=== PATIENT | male | born 1945 | race Caucasian/White ===

== ENCOUNTER 2017-06-25 23:16 | Emergency (ER) | payer OTHER, MEDICARE ==
[~2017-06-25] VITALS: Ht 177.8 cm; Wt 93.0 kg
[~2017-06-25 23:16] MED LIST: AMARYL4 MG PO; AMLODIPINE BESY10 MG PO; AMLODIPINE BESYL5 MG PO; ASPIR-LOW81 MG PO; ASPIR-LOX325 MG; B12 IM; COREG6.25 MG PO; JANUVIA100 MG PO; KAYEXALATE15 GM/60 M PO; LASIX20 MG PO; LASIX40 MG PO; METFORMIN1000 MG PO; PRAVACHOL80 MG PO; SODIUM POLYSTYRENE SULFONATE; ZESTRIL,PRINIVIL5 MG PO
[2017-06-25] MEDS ORDERED: LANTUS SOL100 UNIT/1 SC (23:23)
[2017-06-25] MEDS ORDERED: VELTASSA8.4 GM PO (23:25)
[2017-06-26 00:10] LABS: BASO % 0.3 % (0.0-1.0); EOS % 0.3 % (1.0-4.0); HEMATOCRIT 34.3 % (42.0-52.0); HEMOGLOBIN 11.3 g/dl (14.0-18.0); LYMPH # 0.8 10*3/uL (1.3-4.4); MEAN CELL VOLUME 92.7 fl (80.0-94.0); MEAN CORPUSCULAR HGB 30.5 pg (27.0-31.0); MEAN CORPUSCULAR HGB CONC 32.9 g/dl (33.0-37.0); MEAN PLATELET VOLUME 10.9 fl (9.6-12.3); MONO # 1.3 10*3/uL (0.1-1.0); MONO % 11.5 % (3.0-9.0); NEUT # 8.8 10*3/uL (2.3-7.9); NEUT % 80.5 % (47.0-73.0); PLATELET COUNT AUTOMATED 137 10*3/uL (130-400); RED CELL DISTRI WIDTH 13.6 % (0-14.5); WHITE BLOOD COUNT 10.9 10*3/uL (4.8-10.8)
[2017-06-26 00:24] LABS: ALBUMIN 3.1 gm/dl (3.1-4.5); CREATININE 1.71 mg/dL (0.70-1.30); POTASSIUM 4.8 mmol/L (3.5-5.1); TOTAL PROTEIN 6.3 gm/dL (6.4-8.2)
[2017-06-26 01:08] LABS: BILIRUBIN NEGATIVE (NEGATIVE); BLOOD NEGATIVE (NEGATIVE); CLARITY SL CLOUDY (CLEAR); GLUCOSE 2+ (NEGATIVE); KETONE NEGATIVE (NEGATIVE); LEUKO ESTERASE NEGATIVE (NEGATIVE); NITRITE POSITIVE (NEGATIVE); UROBILINOGEN 0.2 E.U./dl (0.2-1.0)
[2017-06-26 01:15] LABS: BACTERIA 2+; EPITHELIAL CELLS 0-2
[2017-06-26 01:16] LABS: COLOR YELLOW (YELLOW)
[2017-06-26] MEDS ORDERED: GOOD NEIGHBOR M25 M1 PO (03:15)
[2017-06-26] MEDS ORDERED: SEPTDS PO (03:15)
[2017-06-26] MEDS ORDERED: TESSALON PERLE100 M1 PO (03:32)
== END 2017-06-26 03:48 | disposition home or self-care (01) ==
LOC: ED 23:16
PROVIDERS: Emergency Medicine
DX: R42 Dizziness and giddiness (principal); J40 Bronchitis, not specified as acute or chronic; N39.0 Urinary tract infection, site not specified; E11.9 Type 2 diabetes mellitus without complications; F17.200 Nicotine dependence, unspecified, uncomplicated; Z79.899 Other long term (current) drug therapy; Z88.8 Allergy status to other drugs, medicaments and biological substances; Z88.1 Allergy status to other antibiotic agents; Z79.82 Long term (current) use of aspirin; Z79.4 Long term (current) use of insulin; Z85.46 Personal history of malignant neoplasm of prostate

== ENCOUNTER 2018-11-26 23:18 | Inpatient (IN) | payer OTHER ==
[~2018-11-26] VITALS: Ht 170.2 cm; Wt 77.1 kg
--- NOTE | ~2018-11-26 | EKG ---
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
--- NOTE | ~2018-11-26 | CON ---
[place], [place] REPORT OF CONSULTATION NAME: DUONG HILLS UNIT #: [id number] ROOM: 511 DOCTOR: JOLYNN TEJADA DO BIRTHDATE: [birth year] DOS: 11/27/2018 RENAL CONSULTATION REASON FOR CONSULTATION: Chronic kidney disease, hypokalemia. HISTORY OF PRESENT ILLNESS: A pleasant 72-year-old male who has a history of hypertension, unspecified duration, but reports to have some control at home with systolic blood pressure in the 120-130 range. He also has a history of type 2 diabetes mellitus and chronic kidney disease, for which he apparently follows with a dock hand at the [facility]. Baseline creatinine is unknown nor is his underlying stage. He believes his CKD is due to diabetes mellitus, but again is unsure on this. History is also significant for prostate cancer. He has had coronary artery disease with previous 3-vessel coronary artery bypass grafting. He has had a previous prostatectomy as well. He presented to this institution yesterday at the request of physician through the [facility] after he had outpatient lab work performed yesterday morning and his potassium was reportedly 6.5. Unfortunately, I do not have access to these labs, unclear if the specimen was hemolyzed or not, his associated electrolytes such as his bicarbonate are unknown. His blood sugars are unknown either. He had been completely asymptomatic at the time, stated he was feeling quite well. 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 He denied any muscle weakness, chest pain, palpitations, presyncope, dyspnea. With the above, at the request of the physician through the [facility], he presented to this Emergency Room of this institution. He was hemodynamically stable and afebrile. Labs were rechecked. He was found to have a potassium of 5.5. His bicarbonate was 23. His glucose was 125. His BUN was 34, creatinine 1.97, magnesium was low at 1.2. Otherwise, chemistries were otherwise unremarkable. He apparently was given a dose of Kayexalate in the Emergency Room 30 grams and did subsequently move his bowels. This was administered approximately 12:45 a.m. Repeat lab work obtained this morning at 6:00 a.m. showed his potassium was now 5.1, BUN and creatinine of 31 and 1.86, glucose of 86, bicarbonate of 21. He had a hemoglobin of 11.2 on admission, 10.9 today. Previous hemoglobins are unknown. Baseline creatinine is unclear, but when last checked through the system at [facility], his creatinine was 1.6 in 12/2012 as well as 11/2012 with a value of 1.5 noted in 09/2012. Speaking with the patient, he denies use of NSAIDs. He is not on any sodium substitutes or any potassium supplements. Approximately 1 month ago, he was switched from losartan 25 mg daily to an unspecified dose of valsartan by his manager sterile. Apparently, this was done in an abrupt fashion. The manager sterile apparently had initially wanted him to be on Entresto at an unknown dosage, but when that was not available through the [place] system, he was put on what was thought to be an equivalent dose of valsartan again, it is not clear what dosages were being prescribed. He has continued on his same dose of hydrochlorothiazide 12.5 mg daily. He has been on a longstanding and stable dose of Veltassa 16.8 grams daily and has not missed any dosages. In addition to the above, negative review of systems. He has also denied anorexia, nausea, vomiting, abdominal pain, hematochezia or melena. [place], [place] REPORT OF CONSULTATION NAME: DUONG HILLS UNIT #: [id number] ROOM: [facility] DOCTOR: JOLYNN TEJADA DO BIRTHDATE: [birth year] PAST MEDICAL HISTORY: See above. ALLERGIES: LISINOPRIL, METFORMIN, OXACILLIN. CURRENT MEDICATIONS: Xarelto 5 mg daily, pravastatin 80 mg daily, Lantus 20 units subcutaneously at bedtime, Lipitor 20 mg a day, vitamin D 1000 IUs every day, hydrochlorothiazide 25 mg daily, carvedilol 6.25 mg b.i.d., aspirin 81 mg daily, sliding scale insulin. SOCIAL HISTORY: He resides at home. FAMILY HISTORY: Noncontributory. REVIEW OF SYSTEMS: Please see HPI. A full 10-point review of system was performed and obtained the above noted measures, was unremarkable except as noted in HPI. PHYSICAL EXAMINATION: VITAL SIGNS: Blood pressure is 140/66, pulse is 68, respirations 16, temperature is 97.5 degrees Fahrenheit. GENERAL APPEARANCE: A well-appearing male, awake, alert and oriented x 3, currently in no apparent distress. HEAD AND NECK: Conjunctivae are pink and moist. Mucosa is pink and moist. No carotid bruit, thyromegaly, adenopathy or JVD appreciated. LUNGS: Clear to auscultation and percussion. HEART: Regular, without S4, S3 gallop, rub, murmur or heave noted. ABDOMEN: Soft, positive bowel sounds x 4, nontender, without CVA tenderness noted. No rebound, guarding or rigidity noted. No flank bruits appreciated. NEUROLOGIC: Grossly nonfocal. EXTREMITIES: There is no clubbing, cyanosis. There is no edema noted. Pulses are +2 bilateral radial as well as dorsalis pedis. SKIN: Warm and dry without rash, ulcers, lesions, or petechiae appreciated. LABORATORY DATA: Labs from today: WBC is 7.0, hemoglobin of 10.9, hematocrit 34.4, platelets 153,000. MCV is 98.9, RDW is 12.5. Sodium is 144, potassium 5.1, chloride 116, CO2 21, BUN 31, creatinine 1.86, glucose of 86, calcium is 8.9. ASSESSMENT AND PLAN: 1. Chronic kidney disease, baseline is unknown, but renal function is stable apparently from admission labs and it is apparently unchanged going back to labs noted from 2013. He does follow with a dock hand at the [facility]. 2. Hypokalemia by report, though with decline in his potassium when rechecked on evaluation at the Emergency Room at [facility], suspect the [facility] value was erroneous perhaps due to hemolysis. He has no evidence to suggest a GI bleed. No salt substitutes or potassium supplements. No NSAIDs. He has been compliant with all of his medications including Veltassa and hydrochlorothiazide. Likely a question was raised that this could be related to the switch from losartan to valsartan, and while switch from losartan [place], [place] REPORT OF CONSULTATION NAME: DUONG HILLS UNIT #: [id number] ROOM: 511 DOCTOR: JOLYNN TEJADA DO BIRTHDATE: [birth year] to a more potent dosage of valsartan could lead to an elevated potassium, it seems that this was unlikely, and an insignificant contribution to the report of elevated potassium value given the significant drop in his potassium while it was rechecked at this institution pretreatment. 3. Hypertension. Blood pressure is under fair control, although apparently under better control at home. 4. Hypomagnesemia, repeat value has not been performed. RECOMMENDATIONS: The patient is anxious for discharge. He may be discharged to home from my perspective. We would suggest that he have outpatient lab work checked later this week to reassess his potassium and magnesium balance. I would suggest that, since it seems the switch from losartan to valsartan was arbitrary, he resume his previous dose of losartan. I did ask him to touch base with his outpatient dock hand for further guidance as well. Thank you for allowing us to participate in the care of this patient. JOLYNN TEJADA DO CM:CONSTR:REPORT OF CONSULTATION [id number] 12/13/18 0801 interface
[2018-11-26 23:18] VITALS: BP 157/77
[~2018-11-26 23:18] MED LIST changes: +GOOD NEIGHBOR M25 M1 PO; +LANTUS SOL100 UNIT/1 SC; +PRAVACHOL80 M1 PO; -PRAVACHOL80 MG PO; +SEPTDS PO; +TESSALON PERLE100 M1 PO; +VELTASSA8.4 GM PO
[2018-11-26 23:58] LABS: BASO % 0.5 % (0.0-1.0); EOS # 0.2 10*3/uL (0.0-0.4); HEMATOCRIT 34.4 % (42.0-52.0); HEMOGLOBIN 11.2 g/dl (14.0-18.0); LYMPH # 2.3 10*3/uL (1.3-4.4); LYMPH % 26.4 % (27.0-41.0); MEAN CELL VOLUME 98.3 fl (80.0-94.0); MEAN CORPUSCULAR HGB CONC 32.6 g/dl (33.0-37.0); MEAN PLATELET VOLUME 11.1 fl (9.6-12.3); MONO # 0.9 10*3/uL (0.1-1.0); MONO % 10.5 % (3.0-9.0); NEUT # 5.2 10*3/uL (2.3-7.9); NEUT % 60.3 % (47.0-73.0); PLATELET COUNT AUTOMATED 160 10*3/uL (130-400); RED CELL DISTRI WIDTH 12.5 % (0-14.5); WHITE BLOOD COUNT 8.7 10*3/uL (4.8-10.8)
[2018-11-27 00:14] LABS: ALBUMIN 3.5 gm/dl (3.1-4.5); ALKALINE PHOSPHATASE 102 U/L (45-117); BUN 34 mg/dl (7-24); CHLORIDE 113 mmol/L (98-107); CREATININE 1.97 mg/dL (0.70-1.30); POTASSIUM 5.5 mmol/L (3.5-5.1); SGOT/AST 17 IU/L (3-35); SGPT/ALT 26 U/L (12-78); SODIUM 142 mmol/L (136-145); TOTAL PROTEIN 6.7 gm/dL (6.4-8.2)
[2018-11-27 00:15] LABS: TROPONIN I < 0.015 ng/ml (<0.045)
[2018-11-27 00:23] LABS: INTERNATIONAL NORM RATIO 1.6 (2.0-3.5)
[2018-11-27 01:10] VITALS: BP 108/44
[2018-11-27] MEDS ORDERED: VICTOZA 2-0.6 MG/0.1 SC (01:43)
[2018-11-27] MEDS ORDERED: LOSARTAN POTASS25 M1 PO ×2 (01:44→15:34)
[2018-11-27] MEDS ORDERED: HYDR25T PO (01:45)
[2018-11-27] MEDS ORDERED: XARELTO2.5 MG PO (01:45)
[2018-11-27] MEDS ORDERED: VITAMIN D31000 UNI1 PO (01:47)
[2018-11-27] MEDS ORDERED: B121000 MCG/1 IM (01:53)
[2018-11-27 06:55] LABS: BASO % 0.6 % (0.0-1.0); EOS # 0.2 10*3/uL (0.0-0.4); EOS % 3.4 % (1.0-4.0); HEMATOCRIT 34.4 % (42.0-52.0); HEMOGLOBIN 10.9 g/dl (14.0-18.0); LYMPH # 2.1 10*3/uL (1.3-4.4); LYMPH % 30.7 % (27.0-41.0); MEAN CELL VOLUME 98.9 fl (80.0-94.0); MEAN CORPUSCULAR HGB 31.3 pg (27.0-31.0); MEAN CORPUSCULAR HGB CONC 31.7 g/dl (33.0-37.0); MEAN PLATELET VOLUME 11.7 fl (9.6-12.3); MONO # 0.8 10*3/uL (0.1-1.0); MONO % 11.2 % (3.0-9.0); NEUT # 3.8 10*3/uL (2.3-7.9); NEUT % 53.8 % (47.0-73.0); PLATELET COUNT AUTOMATED 153 10*3/uL (130-400); RED BLOOD COUNT 3.48 10*6/uL (4.50-5.90); RED CELL DISTRI WIDTH 12.5 % (0-14.5)
[2018-11-27 07:29] LABS: POTASSIUM 5.1 mmol/L (3.5-5.1)
[2018-11-27 07:46] LABS: CREATININE 1.86 mg/dL (0.70-1.30)
[2018-11-27 08:06] VITALS: BP 136/62
[2018-11-27 09:57] VITALS: BP 140/66
[2018-11-27 12:10] VITALS: BP 148/62
== END 2018-11-27 15:58 | disposition home or self-care (01) | DRG 640 ==
LOC: ED 23:18 → EDHOLD 11-27 00:50 → 5E 11-27 00:50
PROVIDERS: Family Medicine; Student in an Organized Health Care Education/Training Program; ADMIT Emergency Medicine
DX: E87.5 Hyperkalemia (principal); N17.0 Acute kidney failure with tubular necrosis; E87.8 Other disorders of electrolyte and fluid balance, not elsewhere classified; D64.9 Anemia, unspecified; I12.9 Hypertensive chronic kidney disease with stage 1 through stage 4 chronic kidney disease, or unspecified chronic kidney disease; N18.9 Chronic kidney disease, unspecified; E11.22 Type 2 diabetes mellitus with diabetic chronic kidney disease; I25.10 Atherosclerotic heart disease of native coronary artery without angina pectoris; E83.42 Hypomagnesemia; E78.5 Hyperlipidemia, unspecified; E11.65 Type 2 diabetes mellitus with hyperglycemia; Z79.4 Long term (current) use of insulin; Z88.8 Allergy status to other drugs, medicaments and biological substances; Z88.1 Allergy status to other antibiotic agents; Z87.440 Personal history of urinary (tract) infections; Z85.46 Personal history of malignant neoplasm of prostate; Z95.1 Presence of aortocoronary bypass graft; Z87.891 Personal history of nicotine dependence; Z80.42 Family history of malignant neoplasm of prostate; Z84.89 Family history of other specified conditions; Z79.82 Long term (current) use of aspirin; Z79.899 Other long term (current) drug therapy

== ENCOUNTER 2020-11-25 21:56 | Inpatient (IN) | payer OTHER ==
[~2020-11-25] VITALS: Ht 170.1 cm; Wt 80.8 kg
[~2020-11-25 21:56] MED LIST changes: +B121000 MCG/1 IM; +HYDR25T PO; +LOSARTAN POTASS25 M1 PO; +VICTOZA 2-0.6 MG/0.1 SC; +VITAMIN D31000 UNI1 PO; +XARELTO2.5 MG PO
[2020-11-25 22:06] VITALS: BP 173/66
[2020-11-25 22:28] LABS: BASO % 0.6 % (0.0-1.0); EOS # 0.3 10*3/uL (0.0-0.4); EOS % 3.8 % (1.0-4.0); HEMATOCRIT 35.8 % (42.0-52.0); LYMPH # 1.8 10*3/uL (1.3-4.4); LYMPH % 25.8 % (27.0-41.0); MEAN CORPUSCULAR HGB 31.2 pg (27.0-31.0); MEAN CORPUSCULAR HGB CONC 32.1 g/dl (33.0-37.0); MEAN PLATELET VOLUME 11.2 fl (9.6-12.3); MONO # 0.9 10*3/uL (0.1-1.0); MONO % 12.5 % (3.0-9.0); NEUT % 57.2 % (47.0-73.0); PLATELET COUNT AUTOMATED 154 10*3/uL (130-400); RED BLOOD COUNT 3.69 10*6/uL (4.50-5.90); RED CELL DISTRI WIDTH 13.1 % (0-14.5); WHITE BLOOD COUNT 7.1 10*3/uL (4.8-10.8)
[2020-11-25 22:48] LABS: ALBUMIN 3.2 gm/dl (3.1-4.5); CREATININE 1.76 mg/dL (0.70-1.30); POTASSIUM 5.5 mmol/L (3.5-5.1); TOTAL PROTEIN 6.7 gm/dL (6.4-8.2)
[2020-11-25 23:04] VITALS: BP 158/88
[2020-11-25] MEDS ORDERED: DIOVAN40 MG PO (23:26)
[2020-11-25] MEDS ORDERED: XARE15TA PO (23:29)
[2020-11-25] MEDS ORDERED: LIPITOR80 MG PO (23:30)
[2020-11-25] MEDS ORDERED: COREG12.5 M1 PO (23:30)
[2020-11-25] MEDS ORDERED: NOVOLOG FL100 UNIT/2 SC (23:32)
[2020-11-25] MEDS ORDERED: LANTUS SOL100 UNIT/1 SC (23:32)
[2020-11-25] MEDS ORDERED: TERAZOSIN HCL2 M1 PO (23:33)
[2020-11-25 23:50] VITALS: BP 168/62
[2020-11-26] MEDS ORDERED: VITAMIN B121000 MC1 PO (00:20)
[2020-11-26 04:43] LABS: BASO % 0.6 % (0.0-1.0); EOS # 0.3 10*3/uL (0.0-0.4); EOS % 4.1 % (1.0-4.0); HEMATOCRIT 35.6 % (42.0-52.0); LYMPH # 1.8 10*3/uL (1.3-4.4); LYMPH % 27.2 % (27.0-41.0); MEAN CELL VOLUME 98.3 fl (80.0-94.0); MEAN CORPUSCULAR HGB 30.9 pg (27.0-31.0); MEAN CORPUSCULAR HGB CONC 31.5 g/dl (33.0-37.0); MEAN PLATELET VOLUME 10.8 fl (9.6-12.3); MONO # 0.8 10*3/uL (0.1-1.0); MONO % 12.5 % (3.0-9.0); NEUT # 3.7 10*3/uL (2.3-7.9); NEUT % 55.3 % (47.0-73.0); PLATELET COUNT AUTOMATED 145 10*3/uL (130-400); RED BLOOD COUNT 3.62 10*6/uL (4.50-5.90); RED CELL DISTRI WIDTH 13.4 % (0-14.5); WHITE BLOOD COUNT 6.6 10*3/uL (4.8-10.8)
[2020-11-26 04:57] LABS: ACT PARTIAL THROMBO TIME 28.5 SECONDS (20.0-32.1); INTERNATIONAL NORM RATIO 1.3 (2.0-3.5)
[2020-11-26 05:02] LABS: ALBUMIN 3.3 gm/dl (3.1-4.5); CREATININE 1.72 mg/dL (0.70-1.30); POTASSIUM 5.8 mmol/L (3.5-5.1); TOTAL PROTEIN 6.7 gm/dL (6.4-8.2)
[2020-11-26 05:08] LABS: THYROID STIM HORMONE (HS) 3.34 uIU/ml (0.358-4.75)
[2020-11-26 08:00] VITALS: BP 161/64
[2020-11-26 09:45] LABS: VITAMIN D, 25-HYDROXY 39.6 ng/mL (30-100)
[2020-11-26 10:27] LABS: BILIRUBIN Negative (Negative); BLOOD Negative (Negative); CLARITY Clear (Clear); COLOR Yellow (Yellow); GLUCOSE 3+ (Negative); KETONE Negative (Negative); LEUKO ESTERASE Negative (Negative); NITRITE Negative (Negative); PH 5.5 (4.5-8.0); UROBILINOGEN 0.2 E.U./dl (0.0-1.0)
[2020-11-26 10:40] LABS: URINE CREATININE RANDOM 42.7 mg/dL
[2020-11-26 11:23] LABS: BACTERIA 3+; WBC 16-20 wbc/hpf (0-5)
[2020-11-26 12:00] VITALS: BP 156/62
[2020-11-26] MEDS ORDERED: MACROBID100 M1 PO (15:11)
== END 2020-11-26 15:39 | disposition home or self-care (01) | DRG 683 ==
LOC: ED 21:56 → EDHOLD 23:08 → 4E 23:08
PROVIDERS: Hospitalist; Internal Medicine; ADMIT Internal Medicine; ATTEND Internal Medicine
DX: N17.0 Acute kidney failure with tubular necrosis (principal); I13.0 Hypertensive heart and chronic kidney disease with heart failure and stage 1 through stage 4 chronic kidney disease, or unspecified chronic kidney disease; I50.22 Chronic systolic (congestive) heart failure; E11.22 Type 2 diabetes mellitus with diabetic chronic kidney disease; E11.65 Type 2 diabetes mellitus with hyperglycemia; E87.5 Hyperkalemia; D53.9 Nutritional anemia, unspecified; I25.10 Atherosclerotic heart disease of native coronary artery without angina pectoris; E83.42 Hypomagnesemia; E78.2 Mixed hyperlipidemia; N18.32 Chronic kidney disease, stage 3b; I48.0 Paroxysmal atrial fibrillation; Z79.4 Long term (current) use of insulin; Z88.1 Allergy status to other antibiotic agents; Z88.8 Allergy status to other drugs, medicaments and biological substances; Z87.891 Personal history of nicotine dependence; Z95.0 Presence of cardiac pacemaker; Z85.46 Personal history of malignant neoplasm of prostate

== ENCOUNTER 2022-12-26 22:22 | Emergency (ER) | payer OTHER ==
[~2022-12-26] VITALS: Ht 170.1 cm; Wt 72.6 kg
[~2022-12-26 22:22] MED LIST changes: +COREG12.5 M1 PO; +DIOVAN40 MG PO; +LIPITOR80 MG PO; +MACROBID100 M1 PO; +NOVOLOG FL100 UNIT/2 SC; +TERAZOSIN HCL2 M1 PO; +VITAMIN B121000 MC1 PO; +XARE15TA PO
[2022-12-26 22:56] LABS: BASO % 0.6 % (0.0-1.0); EOS # 0.3 10*3/uL (0.0-0.4); EOS % 3.5 % (1.0-4.0); HEMATOCRIT 31.1 % (42.0-52.0); LYMPH # 2.2 10*3/uL (1.3-4.4); LYMPH % 30.5 % (27.0-41.0); MEAN CELL VOLUME 94.8 fl (80.0-94.0); MEAN CORPUSCULAR HGB 31.7 pg (27.0-31.0); MEAN CORPUSCULAR HGB CONC 33.4 g/dl (33.0-37.0); MEAN PLATELET VOLUME 10.8 fl (9.6-12.3); MONO # 0.8 10*3/uL (0.1-1.0); NEUT # 3.8 10*3/uL (2.3-7.9); PLATELET COUNT AUTOMATED 175 10*3/uL (130-400); RED BLOOD COUNT 3.28 10*6/uL (4.50-5.90); RED CELL DISTRI WIDTH 12.6 % (0-14.5); WHITE BLOOD COUNT 7.1 10*3/uL (4.8-10.8)
[2022-12-26 23:09] LABS: ACT PARTIAL THROMBO TIME 28.1 SECONDS (20.0-32.1); INTERNATIONAL NORM RATIO 1.3 (2.0-3.5)
[2022-12-26 23:22] LABS: ALKALINE PHOSPHATASE 89 U/L (46-116); BUN 35 mg/dl (9-23); CHLORIDE 115 mmol/L (98-107); LIPASE 50 U/L (12-53); POTASSIUM 4.7 mmol/L (3.4-5.1); SGPT/ALT 12 U/L (10-49); TOTAL PROTEIN 6.3 gm/dL (6.0-8.0)
== END 2022-12-27 02:26 | disposition home or self-care (01) ==
LOC: ED 22:22
PROVIDERS: Internal Medicine
DX: E83.42 Hypomagnesemia (principal); E11.9 Type 2 diabetes mellitus without complications; Z79.4 Long term (current) use of insulin; I10 Essential (primary) hypertension; E78.00 Pure hypercholesterolemia, unspecified; Z88.8 Allergy status to other drugs, medicaments and biological substances; Z98.890 Other specified postprocedural states; Z87.891 Personal history of nicotine dependence

== ENCOUNTER 2023-08-12 08:05 | Emergency (ER) | payer OTHER ==
[~2023-08-12] VITALS: Ht 170.1 cm; Wt 72.6 kg
[2023-08-12] MEDS ORDERED: Acetaminophen/Oxycodone 5 MG/325 MG TABLET PO ONE (08:20)
[2023-08-12] MEDS ORDERED: TRAMADOL HCL50 MG PO (08:52)
[2023-08-12] MEDS ORDERED: PREDNISONE20 M1 PO (08:52)
== END 2023-08-12 09:22 | disposition home or self-care (01) ==
LOC: ED 08:05
DX: M10.041 Idiopathic gout, right hand (principal); I25.10 Atherosclerotic heart disease of native coronary artery without angina pectoris; I48.91 Unspecified atrial fibrillation; I12.9 Hypertensive chronic kidney disease with stage 1 through stage 4 chronic kidney disease, or unspecified chronic kidney disease; E11.22 Type 2 diabetes mellitus with diabetic chronic kidney disease; N18.9 Chronic kidney disease, unspecified; E78.5 Hyperlipidemia, unspecified; Z88.8 Allergy status to other drugs, medicaments and biological substances; Z88.1 Allergy status to other antibiotic agents; Z79.2 Long term (current) use of antibiotics; Z79.899 Other long term (current) drug therapy; Z79.82 Long term (current) use of aspirin; Z79.4 Long term (current) use of insulin; Z95.0 Presence of cardiac pacemaker; Z90.89 Acquired absence of other organs; Z87.891 Personal history of nicotine dependence

== ENCOUNTER 2023-08-31 09:40 | Emergency (ER) | payer OTHER ==
[~2023-08-31] VITALS: Ht 167.6 cm; Wt 72.6 kg
[~2023-08-31 09:40] MED LIST changes: +PREDNISONE20 M1 PO; +TRAMADOL HCL50 MG PO
[2023-08-31 10:04] LABS: BASO % 0.4 % (0.0-1.0); EOS # 0.3 10*3/uL (0.0-0.4); EOS % 4.2 % (1.0-4.0); HEMATOCRIT 31.3 % (42.0-52.0); LYMPH # 1.2 10*3/uL (1.3-4.4); LYMPH % 17.3 % (27.0-41.0); MEAN CELL VOLUME 96.3 fl (80.0-94.0); MEAN CORPUSCULAR HGB 31.1 pg (27.0-31.0); MEAN CORPUSCULAR HGB CONC 32.3 g/dl (33.0-37.0); MEAN PLATELET VOLUME 10.2 fl (9.6-12.3); MONO # 0.6 10*3/uL (0.1-1.0); MONO % 8.9 % (3.0-9.0); NEUT # 4.6 10*3/uL (2.3-7.9); NEUT % 68.9 % (47.0-73.0); PLATELET COUNT AUTOMATED 140 10*3/uL (130-400); RED BLOOD COUNT 3.25 10*6/uL (4.50-5.90); RED CELL DISTRI WIDTH 13.2 % (0-14.5); WHITE BLOOD COUNT 6.7 10*3/uL (4.8-10.8)
[2023-08-31] MEDS ORDERED: hydrALAZINE hydrochloride 20 MG/ML VIAL IV ONE ×3 (10:15→10:30)
[2023-08-31 10:25] LABS: TOTAL PROTEIN 6.2 gm/dL (6.0-8.0)
[2023-08-31] MEDS ORDERED: MAGNESIUM SULFATE 50 ML IV ONE (10:40)
[2023-08-31] MEDS ORDERED: MAGNESIUM OXID420 M1 PO (11:26)
[2023-08-31] MEDS ORDERED: CLARITIN10 MG PO (11:27)
== END 2023-08-31 11:40 | disposition home or self-care (01) ==
LOC: ED 09:40
PROVIDERS: Nurse Practitioner Family
DX: I13.0 Hypertensive heart and chronic kidney disease with heart failure and stage 1 through stage 4 chronic kidney disease, or unspecified chronic kidney disease (principal); E11.65 Type 2 diabetes mellitus with hyperglycemia; E11.22 Type 2 diabetes mellitus with diabetic chronic kidney disease; E78.00 Pure hypercholesterolemia, unspecified; N18.9 Chronic kidney disease, unspecified; R60.0 Localized edema; E83.42 Hypomagnesemia; Z88.8 Allergy status to other drugs, medicaments and biological substances; E87.5 Hyperkalemia; D64.9 Anemia, unspecified; I25.10 Atherosclerotic heart disease of native coronary artery without angina pectoris; E78.5 Hyperlipidemia, unspecified; Z98.890 Other specified postprocedural states; Z87.891 Personal history of nicotine dependence

== ENCOUNTER 2024-08-11 16:19 | Inpatient (IN) | payer OTHER ==
[~2024-08-11] VITALS: Ht 167.6 cm; Wt 75.4 kg
[2024-08-11] VITALS (9 sets, daily range): BP systolic 110–150; BP diastolic 25–47
[~2024-08-11 16:19] MED LIST changes: +CLARITIN10 MG PO; +MAGNESIUM OXID420 M1 PO
[2024-08-11 16:57] LABS: HEMATOCRIT 21.3 % (42.0-52.0); MEAN CELL VOLUME 95.9 fl (80.0-94.0); MEAN CORPUSCULAR HGB 30.6 pg (27.0-31.0); MEAN CORPUSCULAR HGB CONC 31.9 g/dl (33.0-37.0); MEAN PLATELET VOLUME 10.5 fl (9.6-12.3); PLATELET COUNT AUTOMATED 161 10*3/uL (130-400); RED BLOOD COUNT 2.22 10*6/uL (4.50-5.90); RED CELL DISTRI WIDTH 15.6 % (0-14.5); WHITE BLOOD COUNT 5.5 10*3/uL (4.8-10.8)
[2024-08-11 17:03] LABS: MANUAL DIFF REFLEX YES
[2024-08-11 17:17] LABS: TOTAL CELLS COUNTED 100 #CELLS
[2024-08-11 17:18] LABS: PLATELET SUFFICIENCY NORMAL (NORMAL)
[2024-08-11] MEDS ORDERED: SODIUM CHLORIDE 0.9% 1,000 ML IV ONE ×2 (17:25→18:55)
[2024-08-11] MEDS ORDERED: ACETAMINOPHEN 325 MG TAB PO PRN (18:00)
[2024-08-11] MEDS ORDERED: Magnesium Hydroxide 30 ML UDC PO PRN (18:00)
[2024-08-11] MEDS ORDERED: TEMAZEPAM 15 MG CAP PO PRN (18:00)
[2024-08-11] MEDS ORDERED: SUCRALFATE 1 GM TAB PO SCH (19:00)
[2024-08-11] MEDS ORDERED: SODIUM CHLORIDE 0.9% 500 ML IV ONE ×2 (19:54→22:56)
[2024-08-11] MEDS ORDERED: DEXTROSE 10 % IN WATER 250 ML IV PRN (20:20)
[2024-08-11] MEDS ORDERED: INSULIN LISPRO 1 UNIT/0.01 ML SQ SCH (22:00)
[2024-08-11] MEDS ORDERED: Insulin Glargine, Recombinan 1 UNIT/0.01 ML SC SCH (22:00)
[2024-08-11] MEDS ORDERED: CARVEDILOL 12.5 MG TAB PO SCH (22:00)
[2024-08-11 22:45] LABS: BASO % 0.6 % (0.0-1.0); EOS # 0.3 10*3/uL (0.0-0.4); EOS % 5.1 % (1.0-4.0); HEMATOCRIT 23.5 % (42.0-52.0); MEAN CELL VOLUME 96.3 fl (80.0-94.0); MEAN CORPUSCULAR HGB 30.7 pg (27.0-31.0); MEAN CORPUSCULAR HGB CONC 31.9 g/dl (33.0-37.0); MONO # 0.7 10*3/uL (0.1-1.0); MONO % 12.8 % (3.0-9.0); NEUT # 2.9 10*3/uL (2.3-7.9); NEUT % 54.8 % (47.0-73.0); PLATELET COUNT AUTOMATED 150 10*3/uL (130-400); RED BLOOD COUNT 2.44 10*6/uL (4.50-5.90); RED CELL DISTRI WIDTH 15.1 % (0-14.5); WHITE BLOOD COUNT 5.3 10*3/uL (4.8-10.8)
[2024-08-12] VITALS (12 sets, daily range): BP systolic 128–180; BP diastolic 32–84
[2024-08-12 05:37] LABS: POTASSIUM 4.7 mmol/L (3.4-5.1); TOTAL PROTEIN 5.4 gm/dL (6.0-8.0)
[2024-08-12] MEDS ORDERED: Pantoprazole Sodium 40 MG TAB PO SCH (06:00)
[2024-08-12 06:02] LABS: BASO # 0.1 10*3/uL (0.0-0.1); BASO % 0.8 % (0.0-1.0); EOS # 0.3 10*3/uL (0.0-0.4); EOS % 4.6 % (1.0-4.0); HEMATOCRIT 25.8 % (42.0-52.0); MEAN CELL VOLUME 93.5 fl (80.0-94.0); MEAN CORPUSCULAR HGB 31.2 pg (27.0-31.0); MEAN CORPUSCULAR HGB CONC 33.3 g/dl (33.0-37.0); MEAN PLATELET VOLUME 11.4 fl (9.6-12.3); MONO # 0.7 10*3/uL (0.1-1.0); MONO % 11.8 % (3.0-9.0); NEUT # 3.9 10*3/uL (2.3-7.9); NEUT % 62.9 % (47.0-73.0); PLATELET COUNT AUTOMATED 152 10*3/uL (130-400); RED BLOOD COUNT 2.76 10*6/uL (4.50-5.90); WHITE BLOOD COUNT 6.3 10*3/uL (4.8-10.8)
[2024-08-12 06:55] LABS: BILIRUBIN Negative (Negative); BLOOD Negative (Negative); CLARITY Clear (Clear); COLOR Yellow (Yellow); GLUCOSE Negative (Negative); KETONE Negative (Negative); LEUKO ESTERASE Negative (Negative); NITRITE Negative (Negative); PH 5.5 (4.5-8.0); SPECIFIC GRAVITY 1.015 (1.001-1.030); UROBILINOGEN 0.2 E.U./dl (0.0-1.0)
[2024-08-12 07:31] LABS: EPITHELIAL CELLS 0-2
[2024-08-12] MEDS ORDERED: Losartan Potassium 50 MG TAB PO SCH (10:00)
[2024-08-12] MEDS ORDERED: [UNRECOGNIZED DRUG - OTHER] PO SCH (10:00)
[2024-08-12] MEDS ORDERED: FUROSEMIDE 20 MG TAB PO SCH (10:00)
[2024-08-12] MEDS ORDERED: hydroCHLOROthiazide 25 MG TAB PO SCH (10:00)
[2024-08-12] MEDS ORDERED: ASPIRIN ENTERIC COATED 81 MG TAB PO SCH (10:00)
[2024-08-13] VITALS: BP 124/85
[2024-08-13 06:35] LABS: POTASSIUM 4.6 mmol/L (3.4-5.1)
[2024-08-13 06:41] LABS: BASO % 0.5 % (0.0-1.0); EOS # 0.2 10*3/uL (0.0-0.4); EOS % 3.9 % (1.0-4.0); HEMATOCRIT 23.6 % (42.0-52.0); MEAN CELL VOLUME 91.5 fl (80.0-94.0); MEAN CORPUSCULAR HGB 30.2 pg (27.0-31.0); MEAN CORPUSCULAR HGB CONC 33.1 g/dl (33.0-37.0); MEAN PLATELET VOLUME 11.2 fl (9.6-12.3); MONO # 0.7 10*3/uL (0.1-1.0); MONO % 12.4 % (3.0-9.0); NEUT # 3.4 10*3/uL (2.3-7.9); NEUT % 57.2 % (47.0-73.0); PLATELET COUNT AUTOMATED 149 10*3/uL (130-400); RED BLOOD COUNT 2.58 10*6/uL (4.50-5.90); RED CELL DISTRI WIDTH 15.9 % (0-14.5); WHITE BLOOD COUNT 5.9 10*3/uL (4.8-10.8)
[2024-08-13 08:00] VITALS: BP 134/48
[2024-08-13] MEDS ORDERED: ELIQUIS2.5 M1 PO (11:07)
[2024-08-13 11:34] VITALS: BP 131/45
[2024-08-13 14:01] LABS: BASO % 0.5 % (0.0-1.0); EOS # 0.2 10*3/uL (0.0-0.4); EOS % 3.5 % (1.0-4.0); HEMATOCRIT 25.4 % (42.0-52.0); MEAN CELL VOLUME 92.4 fl (80.0-94.0); MEAN CORPUSCULAR HGB 30.9 pg (27.0-31.0); MEAN CORPUSCULAR HGB CONC 33.5 g/dl (33.0-37.0); MEAN PLATELET VOLUME 10.9 fl (9.6-12.3); MONO # 0.6 10*3/uL (0.1-1.0); MONO % 10.4 % (3.0-9.0); NEUT # 3.9 10*3/uL (2.3-7.9); NEUT % 67.6 % (47.0-73.0); PLATELET COUNT AUTOMATED 147 10*3/uL (130-400); RED BLOOD COUNT 2.75 10*6/uL (4.50-5.90); RED CELL DISTRI WIDTH 15.9 % (0-14.5); WHITE BLOOD COUNT 5.7 10*3/uL (4.8-10.8)
[2024-08-13 16:00] VITALS: BP 112/43
[2024-08-13 20:00] VITALS: BP 147/51
[2024-08-14] VITALS (7 sets, daily range): BP systolic 109–132; BP diastolic 39–61
[2024-08-14 05:13] LABS: POTASSIUM 4.6 mmol/L (3.4-5.1)
[2024-08-14 06:39] LABS: MEAN CELL VOLUME 94.9 fl (80.0-94.0); MEAN CORPUSCULAR HGB 30.9 pg (27.0-31.0); MEAN CORPUSCULAR HGB CONC 32.5 g/dl (33.0-37.0); MEAN PLATELET VOLUME 11.7 fl (9.6-12.3); PLATELET COUNT AUTOMATED 142 10*3/uL (130-400); RED BLOOD COUNT 2.17 10*6/uL (4.50-5.90); RED CELL DISTRI WIDTH 15.5 % (0-14.5); WHITE BLOOD COUNT 5.3 10*3/uL (4.8-10.8)
[2024-08-14 06:44] LABS: HEMATOCRIT 20.6 % (42.0-52.0); MANUAL DIFF REFLEX YES
[2024-08-14] MEDS ORDERED: SODIUM CHLORIDE 0.9% 500 ML IV ONE (08:29)
[2024-08-14 08:54] LABS: BASOPHILS 1 % (0-1); TOTAL CELLS COUNTED 100 #CELLS
[2024-08-14 08:57] LABS: PLATELET SUFFICIENCY NORMAL (NORMAL)
[2024-08-14 08:58] LABS: POLYCHROMASIA SLIGHT
[2024-08-14 11:52] LABS: BASO % 0.5 % (0.0-1.0); EOS # 0.2 10*3/uL (0.0-0.4); HEMATOCRIT 25.3 % (42.0-52.0); MEAN CORPUSCULAR HGB 30.5 pg (27.0-31.0); MEAN CORPUSCULAR HGB CONC 32.8 g/dl (33.0-37.0); MEAN PLATELET VOLUME 11.1 fl (9.6-12.3); MONO # 0.6 10*3/uL (0.1-1.0); MONO % 10.7 % (3.0-9.0); NEUT # 3.5 10*3/uL (2.3-7.9); NEUT % 64.1 % (47.0-73.0); PLATELET COUNT AUTOMATED 142 10*3/uL (130-400); RED BLOOD COUNT 2.72 10*6/uL (4.50-5.90); RED CELL DISTRI WIDTH 15.7 % (0-14.5); WHITE BLOOD COUNT 5.5 10*3/uL (4.8-10.8)
== END 2024-08-14 15:55 | disposition short-term general hospital (02) | DRG 377 ==
LOC: ED 16:19 → EDHOLD 17:46 → 4E 17:46 → EDHOLD 18:38 → 4E 20:55
PROVIDERS: Emergency Medicine; Internal Medicine; Student in an Organized Health Care Education/Training Program; ADMIT Internal Medicine; ATTEND Internal Medicine
PROC: 30233N1 Transfusion of Nonautologous Red Blood Cells into Peripheral Vein, Percutaneous Approach (ICD-10-PCS; principal; 2024-08-11)
DX: K92.2 Gastrointestinal hemorrhage, unspecified (principal); N17.0 Acute kidney failure with tubular necrosis; E44.0 Moderate protein-calorie malnutrition; E87.20 Acidosis, unspecified; N18.4 Chronic kidney disease, stage 4 (severe); I13.0 Hypertensive heart and chronic kidney disease with heart failure and stage 1 through stage 4 chronic kidney disease, or unspecified chronic kidney disease; D53.9 Nutritional anemia, unspecified; E87.5 Hyperkalemia; E11.22 Type 2 diabetes mellitus with diabetic chronic kidney disease; E78.2 Mixed hyperlipidemia; I48.0 Paroxysmal atrial fibrillation; E87.8 Other disorders of electrolyte and fluid balance, not elsewhere classified; E11.65 Type 2 diabetes mellitus with hyperglycemia; I25.10 Atherosclerotic heart disease of native coronary artery without angina pectoris; I50.9 Heart failure, unspecified; Z95.0 Presence of cardiac pacemaker; Z95.818 Presence of other cardiac implants and grafts; Z85.46 Personal history of malignant neoplasm of prostate; Z87.891 Personal history of nicotine dependence; Z80.42 Family history of malignant neoplasm of prostate; Z82.3 Family history of stroke; Z88.8 Allergy status to other drugs, medicaments and biological substances; Z79.899 Other long term (current) drug therapy; Z68.26 Body mass index [BMI] 26.0-26.9, adult